=== PATIENT | male | born 1950 | race Caucasian/White ===

== ENCOUNTER 2022-02-15 09:12 | Inpatient (IN) | payer OTHER ==
[2022-02-15] MEDS ORDERED: SODIUM CHLORIDE 0.9% 1000 ML INFUS.BAG IV ONE (09:35)
[2022-02-15] MEDS ORDERED: DEXAMETHASONE SOD PHOSPHATE 10 MG/1 ML VIAL IVPUSH ONE (09:36)
[2022-02-15] MEDS ORDERED: DEXAMETHASONE SOD PHOSPHATE 10 MG/1 ML VIAL ONE (09:38)
[2022-02-15 10:04] LABS: BASO % 0.5 % (0-2.0); EOS % 0.8 % (0-4.5); HEMATOCRIT 39.8 % (35.4-49); HEMOGLOBIN 13.1 GM/dL (11.7-16.9); LYMPH % 13.6 % (8-40); MCH 27.3 pg (25.7-33.7); MCHC 32.9 g/dl (32.0-35.9); MEAN PLT VOLUME 8.9 fl (7.5-11.1); MONO % 18.2 % (3.8-10.2); NEUT % 66.9 % (42.8-82.8); PLATELET COUNT 186 10^3/uL (134-434); RBC 4.79 M/mm3 (4.00-5.60); RDW 14.9 % (11.9-15.9); WHITE BLOOD COUNT 9.6 K/mm3 (4.0-10.0)
[2022-02-15 10:16] LABS: ACTIVATED PTT 26.1 SECONDS (25.2-36.5); INR 1.07 (0.83-1.09); PROTHROMBIN TIME (PATIENT) 12.3 SEC (9.7-13.0)
[2022-02-15 10:27] LABS: CALCIUM 9.2 mg/dL (8.5-10.1)
[2022-02-15 10:28] LABS: ALBUMIN 3.7 g/dl (3.4-5.0); BLOOD UREA NITROGEN 16.3 mg/dL (7-18)
[2022-02-15 10:31] LABS: CREATININE 1.3 mg/dL (0.55-1.3)
[2022-02-15 10:33] LABS: BILIRUBIN,TOTAL 0.3 mg/dL (0.2-1); TOT PROT 6.9 g/dl (6.4-8.2)
[2022-02-15] MEDS ORDERED: ALBUTEROL SO4 HFA INHALER IH PRN (12:00)
[2022-02-15] MEDS ORDERED: ACETAMINOPHEN 325 MG TABLET (FP) PO PRN (12:00)
[2022-02-15] MEDS ORDERED: guaiFENesin 200 MG/10 ML 10 ML UNIT-DOSE CUPS PO PRN (12:01)
[2022-02-15] MEDS ORDERED: REMDESIVIR 200 MG in SODIUM CHLORIDE 250 ML IVPB ONE (14:07)
[2022-02-15] MEDS ORDERED: BENZOCAINE/MENTH/CETYLPYRD CL 1 EACH LOZENGE MM PRN (15:36)
[2022-02-15] MEDS ORDERED: guaiFENesin/D-METHORPHAN HB 10 ML UNIT-DOSE CUPS PO PRN (15:36)
[2022-02-15] MEDS: BUDESONIDE/FORMETEROL FUMARATE 160/4.5 mcg INHALER IH SCH ×2 (16:45→23:14)
[2022-02-15 17:24] VITALS: BMI 30.4
[2022-02-16] MEDS: CARVEDILOL 12.5 MG TABLET (FP) PO SCH ×3 (01:02→21:37)
[2022-02-16] MEDS: NIFEdipine E.R. 30 MG TABLET PO SCH ×2 (01:03→21:37)
[2022-02-16 09:24] LABS: BASO % 0.1 % (0-2.0); HEMATOCRIT 38.4 % (35.4-49); HEMOGLOBIN 12.6 GM/dL (11.7-16.9); LYMPH % 10.1 % (8-40); MCH 27.2 pg (25.7-33.7); MCHC 32.9 g/dl (32.0-35.9); MEAN CELL VOLUME 82.6 fl (80-96); MEAN PLT VOLUME 8.9 fl (7.5-11.1); MONO % 11.2 % (3.8-10.2); NEUT % 78.6 % (42.8-82.8); PLATELET COUNT 185 10^3/uL (134-434); RBC 4.65 M/mm3 (4.00-5.60); RDW 15.1 % (11.9-15.9); WHITE BLOOD COUNT 12.9 K/mm3 (4.0-10.0)
[2022-02-16 09:46] LABS: ALBUMIN 3.5 g/dl (3.4-5.0); BLOOD UREA NITROGEN 23.4 mg/dL (7-18); CALCIUM 9.1 mg/dL (8.5-10.1); MAGNESIUM 2.2 mg/dL (1.8-2.4)
[2022-02-16 09:49] LABS: CREATININE 0.9 mg/dL (0.55-1.3); PHOSPHOROUS 3.7 mg/dL (2.5-4.9)
[2022-02-16 09:50] LABS: BILIRUBIN,TOTAL 0.3 mg/dL (0.2-1); TOT PROT 6.9 g/dl (6.4-8.2)
[2022-02-16] MEDS: ENOXAPARIN NA (PORCINE) 40 MG/0.4 ML DISP.SYRIN SQ SCH (09:59)
[2022-02-16] MEDS: CHOLECALCIFEROL (VIT D3) 1,000 UNIT (25 MCG) TABLET PO SCH (09:59)
[2022-02-16] MEDS: DEXAMETHASONE SOD PHOSPHATE 4 MG/1 ML VIAL IVPUSH SCH (10:00)
[2022-02-16] MEDS: NIFEdipine E.R 60 MG TABLET PO SCH (10:00)
[2022-02-16] MEDS: BUDESONIDE/FORMETEROL FUMARATE 160/4.5 mcg INHALER IH SCH ×2 (10:00→21:37)
[2022-02-16] MEDS: PANTOPRAZOLE 40 MG TABLET PO SCH (10:00)
[2022-02-16] MEDS: RAMIPRIL 5 MG CAPSULE PO SCH (12:46)
[2022-02-16] MEDS: REMDESIVIR 100 MG in SODIUM CHLORIDE 250 ML IVPB SCH (16:53)
[2022-02-17 09:16] LABS: HEMATOCRIT 38.7 % (35.4-49); HEMOGLOBIN 12.3 GM/dL (11.7-16.9); LYMPH % 9.7 % (8-40); MCH 26.4 pg (25.7-33.7); MCHC 31.8 g/dl (32.0-35.9); MEAN CELL VOLUME 83.1 fl (80-96); MEAN PLT VOLUME 9.1 fl (7.5-11.1); MONO % 6.3 % (3.8-10.2); PLATELET COUNT 201 10^3/uL (134-434); RBC 4.66 M/mm3 (4.00-5.60); RDW 14.8 % (11.9-15.9); WHITE BLOOD COUNT 17.8 K/mm3 (4.0-10.0)
[2022-02-17 09:49] LABS: MAGNESIUM 2.1 mg/dL (1.8-2.4)
[2022-02-17 09:51] LABS: ALBUMIN 3.4 g/dl (3.4-5.0); BLOOD UREA NITROGEN 20.8 mg/dL (7-18)
[2022-02-17 09:53] LABS: CREATININE 0.9 mg/dL (0.55-1.3)
[2022-02-17 09:54] LABS: PHOSPHOROUS 3.6 mg/dL (2.5-4.9); TOT PROT 6.5 g/dl (6.4-8.2)
[2022-02-17 09:55] LABS: BILIRUBIN,TOTAL 0.4 mg/dL (0.2-1)
[2022-02-17] MEDS: RAMIPRIL 5 MG CAPSULE PO SCH (10:50)
[2022-02-17] MEDS: CARVEDILOL 12.5 MG TABLET (FP) PO SCH (10:50)
[2022-02-17] MEDS: CHOLECALCIFEROL (VIT D3) 1,000 UNIT (25 MCG) TABLET PO SCH (10:50)
[2022-02-17] MEDS: DEXAMETHASONE SOD PHOSPHATE 4 MG/1 ML VIAL IVPUSH SCH (10:50)
[2022-02-17] MEDS: PANTOPRAZOLE 40 MG TABLET PO SCH (10:50)
[2022-02-17] MEDS: ENOXAPARIN NA (PORCINE) 40 MG/0.4 ML DISP.SYRIN SQ SCH (10:50)
[2022-02-17] MEDS: NIFEdipine E.R 60 MG TABLET PO SCH (10:51)
[2022-02-17] MEDS: BUDESONIDE/FORMETEROL FUMARATE 160/4.5 mcg INHALER IH SCH (10:54)
[2022-02-17] MEDS ORDERED: POLYETHYLENE GLYCOL (HEALTHYLAX) 3350 17 GM PACKET PO SCH (11:30)
[2022-02-17] MEDS ORDERED: DOCUSATE SODIUM 100 MG CAPSULE (FP) PO SCH (11:30)
[2022-02-17 16:25] VITALS: BP 137/69; PULSE 63; TEMP 98.3
[2022-02-17] MEDS: REMDESIVIR 100 MG in SODIUM CHLORIDE 250 ML IVPB SCH (16:32)
[2022-02-17] MEDS ORDERED: SENNOSIDES 8.6MG TABLET (FP) PO SCH (22:00)
== END 2022-02-17 19:00 | disposition home or self-care (01) | DRG 177 ==
LOC: JER 09:12 → JERBED 12:16 → J5S 14:00
PROVIDERS: ADMIT Internal Medicine; ATTEND Internal Medicine
PROC: XW033E5 Introduction of Remdesivir Anti-infective into Peripheral Vein, Percutaneous Approach, New Technology Group 5 (ICD-10-PCS; principal; 2022-02-15)
DX: U07.1 COVID-19 (principal); J12.82 Pneumonia due to coronavirus disease 2019; J98.11 Atelectasis; R55 Syncope and collapse; I10 Essential (primary) hypertension; Z96.649 Presence of unspecified artificial hip joint; E86.0 Dehydration; R09.02 Hypoxemia; R91.1 Solitary pulmonary nodule
CPT/HCPCS: 0241U-QW; 36415; 71045-TC-FY; 71275-TC; 80053; 82550; 82728; 82962; 83615; 83735; 84100; 84484; 85025; 85379; 85610; 85730; 86140; 93005; 93010; 94761; 97116-GP; 97161-GP; 99285-25; C9399; J1100; Q9967